=== PATIENT | female | born 1980 | race Caucasian/White ===

== ENCOUNTER 2018-01-22 22:28 | Emergency (ER) | payer OTHER ==
[~2018-01-22] VITALS: Ht 160 cm; Wt 63.5 kg
[~2018-01-22 22:28] MED LIST: FLEXERIL PO; IBUPROFEN 800800 M1 PO; NORCO 5-325 TA1 EACH PO
[2018-01-22] MEDS ORDERED: PROTONIX40 M1 PO (22:45)
[2018-01-22 23:34] LABS: URINE BILIRUBIN NEGATIVE (Negative); URINE BLOOD NEGATIVE (Negative); URINE CLARITY CLEAR; URINE COLOR YELLOW; URINE GLUCOSE-RANDOM NEGATIVE (Negative); URINE KETONES NEGATIVE (Negative); URINE LEUKOCYTES-REFLEX NEGATIVE (Negative); URINE NITRITE-REFLEX NEGATIVE (Negative); URINE PROTEIN NEGATIVE (Negative); URINE UROBILINOGEN 0.2 E.U./dl (0.2-1.0)
[2018-01-22 23:56] LABS: HEMATOCRIT 38.5 % (37.0-47.0); HEMOGLOBIN 13.3 gm/dL (12.0-15.0); MCH 31.3 pg (26.0-34.0); MCHC 34.5 g/dL (28.0-37.0); MCV 90.7 fL (80.0-100.0); MPV 9.1 fl. (7.2-11.1); NUCLEATED RBCS 0 /100WBC; PLATELET COUNT* 197 thou/uL (150-400); RBC 4.24 mil/uL (4.20-5.00); RDW-CV 13.4 % (10.5-14.5); WBC 7.6 thou/uL (4.0-11.0)
[2018-01-23] LABS: CALCIUM 8.9 mg/dL (8.5-10.1); CREATININE 0.8 mg/dL (0.6-1.3); POTASSIUM 3.5 mmol/L (3.5-5.1)
[2018-01-23 00:05] LABS: ALBUMIN 3.2 g/dL (3.4-5.0); TOTAL BILIRUBIN 0.3 mg/dL (<0.1-1.0)
[2018-01-23] MEDS ORDERED: FLAGYL500 MG PO (01:09)
[2018-01-23] MEDS ORDERED: ZOFRAN4 MG PO (01:09)
[2018-01-23] MEDS ORDERED: CIPRO500 M1 PO (01:09)
[2018-01-23 01:27] VITALS: BP 133/80
[2018-01-23 01:36] LABS: ABSOLUTE EOSINOPHILS 0.1 thou/uL (0.0-0.7); ABSOLUTE LYMPHOCYTES 0.7 thou/uL (0.8-5.3); ABSOLUTE MONOCYTES 0.8 thou/uL (0.0-1.2); ABSOLUTE NEUTROPHILS 6.1 thou/uL (1.6-8.1)
[2018-01-23 01:37] LABS: PLATELET ESTIMATE ADEQUATE
== END 2018-01-23 01:29 | disposition home or self-care (01) ==
LOC: M.ERS 22:28
PROVIDERS: Nurse Practitioner Family
DX: K57.92 Diverticulitis of intestine, part unspecified, without perforation or abscess without bleeding (principal)

== ENCOUNTER → 2018-12-10 | Outpatient (CLI) | payer OTHER ==
[~2018-12-10] MED LIST changes: +CIPRO500 M1 PO; +FLAGYL500 MG PO; +PROTONIX40 M1 PO; +ZOFRAN4 MG PO
== END ==
LOC: M.CT 13:45
DX: K80.20 Calculus of gallbladder without cholecystitis without obstruction (principal); K57.30 Diverticulosis of large intestine without perforation or abscess without bleeding; K42.9 Umbilical hernia without obstruction or gangrene; N88.8 Other specified noninflammatory disorders of cervix uteri

== ENCOUNTER → 2019-01-24 | Day surgery (SDC) | payer OTHER ==
[~2019-01-24] MED LIST changes: +NORCO 5-325 TA1 EAC1 PO; +OMEPRAZOLE40 MG PO
[2019-01-24 06:26] LABS: HEMATOCRIT 42.7 % (37.0-47.0); HEMOGLOBIN 14.8 gm/dL (12.0-15.0)
--- NOTE | 2019-01-26 09:11 | PATH ---
[facility] [address] [place] [address] PATHOLOGY RPT PROCEDURE Name: ALEXUS NICHOLSON Room: [facility]..#: [id number] Admission: 01/24/19 Date of : 76 Discharge: Report #: [id number] Path Case #: [id number] LCA Accession Number: [id number] . 01 Material submitted: . gallbladder - GALLBLADDER . 01 Clinical history: . Calculus of gallbladder without cholecystitis without obstruction . 02 Diagnosis: Gallbladder, cholecystectomy: - Chronic cholecystitis. - Cholelithiasis. (ANH:karen; 01/25/2019) MBR/01/25/2019 . 02 Electronically signed: . Rom Harris MD, Pathologist NPI- [id number] . 01 Gross description: . The specimen is received in formalin, labeled "Alexus Cascade, gallbladder". Received is an intact gallbladder measuring 8.7 x 3.2 x 3.0 cm in greatest dimensions displaying a blue-morgan serosal surface. Opening the specimen reveals a velvety, bile-stained mucosa with a gallbladder wall thickness of 0.1 cm. Calculi are present displaying a brown and multifaceted appearance, and no masses or lesions are noted grossly. Student Records Specialist sections, to include the proximal margin, are submitted in cassette A1. (CAA; 01/24/2019) QAC/QAC . 02 Pathologist provided ICD-10: K80.10 . 02 CPT . 253962 Specimen Comment: A courtesy copy of this report has been sent to Specimen Comment: [phone], . Specimen Comment: Report sent to / DR QUINN Performed at: [address] [id number] MD Chepe Gaston MD Phone: [phone] Performed at: [address] [place], [place] [id number] [place] [address] PATHOLOGY RPT PROCEDURE Name: ALEXUS NICHOLSON Room: [facility] M.R.#: [id number] Admission: 01/24/19 Date of : 76 Discharge: Report #: [id number] Path Case #: [id number] MD Kristian Quiñones MD Phone: [phone]
--- NOTE | 2019-02-07 12:29 | OP ---
[address] [address] OPERATIVE REPORT Name: MAIRA NICHOLSON Room: [facility]#: [id number] Admission: 01/24/19 Attend Phys: Alonzo Tomlin DO Discharge: Date of : 76 Report #: [id number] THIS REPORT FOR: //name// CC: KIMBERLYN Palacios DATE OF SERVICE: 01/24/2019 REFERRING PHYSICIAN: KIMBERLYN Winston PREOPERATIVE DIAGNOSIS: Symptomatic cholelithiasis. POSTOPERATIVE DIAGNOSIS: Symptomatic cholelithiasis. PROCEDURE: Da Shilpi robotic-assisted laparoscopic cholecystectomy with immunofluorescence imaging. SURGEON: Alonzo Tomlin DO SKIRT CLIPPER: Dr. Maciej Etienne. ANESTHESIA: General endotracheal. ESTIMATED BLOOD LOSS: Less than 20 mL. COMPLICATIONS: None. DESCRIPTION OF PROCEDURE: After obtaining proper consent and discussing risks and complications with the patient, she was taken to the operating room, laid in the supine position, administered general anesthesia. She was then prepped and draped in the usual sterile fashion. Preoperative antibiotics were given. SCDs were in place. She was also given 5 mg of indocyanine green contrast. We then performed a timeout. We confirmed the appropriate patient and procedure. Preoperative antibiotics had been given. SCDs were in place. The ICG was given. We then made a small supraumbilical skin incision with a #11 scalpel blade. This was carried down through the skin into the subcutaneous tissue using electrocautery for hemostasis. Once the fascia was encountered, it was incised along the midline, grasped and elevated with Brendan clamps. The peritoneum was then bluntly opened using a hemostat. We then placed 2-0 Vicryl sutures in a boyees-gh-ynlaa fashion to secure the Christopher trocar, which was then inserted and insufflation was begun. Once the insufflation was complete, full visual inspection of the anterior abdominal organs was performed. The patient was also placed in reverse Trendelenburg position. We then identified the gallbladder, which was large and distended. There were no other gross abnormalities identified. We then placed three more da Shilpi ports, [place] [address] OPERATIVE REPORT Name: MAIRA NICHOLSON KOKI Room: [facility].#: [id number] Admission: 01/24/19 Attend Phys: Alonzo Tomlin, Discharge: Date of : 76 Report #: [id number] left upper quadrant and two in the right upper quadrant. We then docked the da Shilpi robot. Once the robot was docked, I inserted hook cautery in the left upper quadrant, 2 Cadiere graspers in the right upper quadrant. I then broke scrub and went to the console where I elevated the gallbladder using the third arm. I then identified the Chana's pouch. There was a large stone impacted in Chana's pouch. I was easily able to identify the common hepatic duct, common bile duct, and cystic duct and we confirmed this also using immunofluorescence imaging with the Firefly feature of the da Shilpi robot. I then dissected the hepatoduodenal ligament down from the gallbladder and was able to identify the cystic duct and cystic artery. The cystic duct was confirmed with immunofluorescence imaging, as was the common hepatic duct and common bile duct again to assure no injury. The cystic duct was quite large and appeared to have a stone impacted in the duct as well. The cystic artery was easily dissected free. The cystic duct was dissected completely free. We then placed 2 clips proximally on the cystic duct after obtaining critical view of safety and then one clip distally on the duct. The artery was similarly clipped proximally and distally, and then divided both between clips. I then removed the gallbladder using electrocautery. As I was dissecting the gallbladder further up, there was another artery identified coursing into the posterior aspect of the gallbladder. This was also clipped and then divided. The gallbladder was then completely removed from the liver bed and once it was completely removed, I then had my medical support assistant grasp the gallbladder with quad grasper through the third arm, which was undocked. I then rescrubbed and went back to the patient's bedside. The remaining instruments were removed and the da Shilpi robot was undocked. We then moved the camera over to arm #1 and I was able to then place Endopouch in through the camera port and we placed the gallbladder into the Endopouch. We then stopped the insufflation. All air was released and trocars were removed. The gallbladder was quite large and full of stones. So, we did have to enlarge the umbilical fascial opening in order to remove the gallbladder. Once it was completely removed, the umbilical fascia was closed using 5 interrupted 0 Vicryl sutures in a odxgqh-ny-kmzsa fashion. Skin incisions were all injected with 0.5% Marcaine without epinephrine and then closed using 4-0 Monocryl subcuticular stitches. Mastisol, Steri-Strips, sterile OpSite, and pressure dressings were placed. The patient tolerated the procedure well and was transported to recovery room in stable condition. <ELECTRONICALLY SIGNED> By: Alonzo Tomlin, 02/07/19 [id number] [id number] Tomlin DO /walter
== END | disposition home or self-care (01) ==
LOC: M.SUR 06:05
PROVIDERS: Surgery
DX: K80.10 Calculus of gallbladder with chronic cholecystitis without obstruction (principal); Z79.899 Other long term (current) drug therapy

== ENCOUNTER 2020-08-06 20:13 | Emergency (ER) | payer OTHER ==
[~2020-08-06] VITALS: Ht 160 cm; Wt 77.1 kg
[2020-08-06 21:22] LABS: URINE BILIRUBIN NEGATIVE (Negative); URINE BLOOD NEGATIVE (Negative); URINE CLARITY CLEAR; URINE COLOR YELLOW; URINE GLUCOSE-RANDOM NEGATIVE (Negative); URINE KETONES NEGATIVE (Negative); URINE LEUKOCYTES-REFLEX NEGATIVE (Negative); URINE NITRITE-REFLEX NEGATIVE (Negative); URINE PROTEIN NEGATIVE (Negative); URINE SPECIFIC GRAVITY 1.015 (1.005-1.030); URINE UROBILINOGEN 0.2 E.U./dl (0.2-1.0)
[2020-08-06] MEDS ORDERED: BENTYL 20 MG TA20 M1 PO (21:50)
[2020-08-06] MEDS ORDERED: AUGMENTIN 875-1 EACH PO (21:50)
[2020-08-06 21:58] VITALS: BP 138/87
== END 2020-08-06 22:04 | disposition home or self-care (01) ==
LOC: M.ERS 20:13
PROVIDERS: Nurse Practitioner Family
DX: K57.32 Diverticulitis of large intestine without perforation or abscess without bleeding (principal); Z98.890 Other specified postprocedural states; Z90.49 Acquired absence of other specified parts of digestive tract; Z90.710 Acquired absence of both cervix and uterus